=== PATIENT | female | born 1945 | race Two or more races ===

== ENCOUNTER 2017-08-09 13:47 | Outpatient (CLI) | payer OTHER ==
[~2017-08-09 13:47] MED LIST: HYZAAR 100-251 UDTAB; METFORMIN HCL500 MG; PERCOCET 5/3251 TAB PO
== END 2017-08-09 13:53 | disposition home or self-care (01) ==
LOC: RAD 501 13:47
DX: M54.5 Low back pain (principal)

== ENCOUNTER → 2017-08-13 13:05 | Outpatient (CLI) | payer OTHER | END | disposition home or self-care (01) | LOC: LAB 13:05 | DX: E55.9 Vitamin D deficiency, unspecified (principal); M85.88 Other specified disorders of bone density and structure, other site ==

== ENCOUNTER 2018-01-02 09:50 | Outpatient (CLI) | payer OTHER | END 2018-01-02 10:43 | disposition home or self-care (01) | LOC: RAD 501 09:50 | DX: M25.511 Pain in right shoulder (principal); M25.512 Pain in left shoulder; M99.01 Segmental and somatic dysfunction of cervical region; M99.02 Segmental and somatic dysfunction of thoracic region; M99.03 Segmental and somatic dysfunction of lumbar region ==

== ENCOUNTER 2019-12-11 12:27 | Outpatient (CLI) | payer OTHER | END 2019-12-11 12:36 | disposition home or self-care (01) | LOC: MRI 12:27 | PROVIDERS: ATTEND Psychiatry & Neurology Neurology | DX: R25.1 Tremor, unspecified (principal) | CPT/HCPCS: 70551 ==

== ENCOUNTER → 2020-03-09 09:24 | Outpatient (CLI) | payer OTHER | END | disposition home or self-care (01) | LOC: LAB 09:24 | PROVIDERS: ATTEND Orthopaedic Surgery | DX: M85.88 Other specified disorders of bone density and structure, other site (principal); E55.9 Vitamin D deficiency, unspecified; E21.2 Other hyperparathyroidism; E88.89 Other specified metabolic disorders; M81.8 Other osteoporosis without current pathological fracture; E56.1 Deficiency of vitamin K; M13.88 Other specified arthritis, other site ==

== ENCOUNTER → 2020-04-21 08:51 | Outpatient (CLI) | payer OTHER | END | disposition home or self-care (01) | LOC: LAB 08:51 | PROVIDERS: ATTEND Orthopaedic Surgery | DX: E88.89 Other specified metabolic disorders (principal); M85.88 Other specified disorders of bone density and structure, other site; E55.9 Vitamin D deficiency, unspecified; E21.2 Other hyperparathyroidism; M81.8 Other osteoporosis without current pathological fracture; E56.1 Deficiency of vitamin K ==

== ENCOUNTER → 2020-04-21 | Outpatient (CLI) | payer OTHER | END | disposition home or self-care (01) | LOC: NUCLEAR 10:00 | PROVIDERS: ATTEND Orthopaedic Surgery | DX: M81.0 Age-related osteoporosis without current pathological fracture (principal) ==

== ENCOUNTER 2021-05-10 09:26 | Outpatient (CLI) | payer OTHER | END 2021-05-10 09:35 | disposition home or self-care (01) | LOC: MRI 09:26 | PROVIDERS: ATTEND Orthopaedic Surgery | DX: M54.59 Other low back pain (principal) | CPT/HCPCS: 72148 ==

== ENCOUNTER → 2021-05-31 08:41 | Outpatient (CLI) | payer OTHER | END | disposition home or self-care (01) | LOC: LAB 08:41 | PROVIDERS: ATTEND Specialist | DX: E03.8 Other specified hypothyroidism (principal); E11.9 Type 2 diabetes mellitus without complications; E06.5 Other chronic thyroiditis; E53.8 Deficiency of other specified B group vitamins; E61.1 Iron deficiency; E59 Dietary selenium deficiency; N39.0 Urinary tract infection, site not specified ==

== ENCOUNTER 2021-09-06 07:18 | Outpatient (CLI) | payer OTHER | END 2021-09-06 07:19 | disposition home or self-care (01) | LOC: RX STUDY 07:18 | PROVIDERS: ATTEND Otolaryngology | DX: R13.10 Dysphagia, unspecified (principal) ==

== ENCOUNTER → 2021-10-06 | Outpatient (CLI) | payer OTHER | END | disposition home or self-care (01) | LOC: NUCLEAR 10:56 | PROVIDERS: ATTEND Orthopaedic Surgery | DX: M81.0 Age-related osteoporosis without current pathological fracture (principal) ==

== ENCOUNTER 2022-08-11 09:01 | Outpatient (CLI) | payer OTHER | END 2022-08-11 09:02 | disposition home or self-care (01) | LOC: LAB 09:01 | PROVIDERS: ATTEND Orthopaedic Surgery | DX: E55.9 Vitamin D deficiency, unspecified (principal); M85.9 Disorder of bone density and structure, unspecified; E56.1 Deficiency of vitamin K; E21.3 Hyperparathyroidism, unspecified; M81.8 Other osteoporosis without current pathological fracture ==